=== PATIENT | male | born 2000 | race Hispanic/Latino ===

== ENCOUNTER 2021-12-12 09:26 | Emergency (ER) | payer BC | END 2021-12-12 10:16 | LOC: ERS 09:26 | DX: F12.10 Cannabis abuse, uncomplicated (principal) | CPT/HCPCS: 99283 ==

== ENCOUNTER 2023-08-06 11:02 | Emergency (ER) | payer SELFPAY | END 2023-08-06 12:05 | disposition home or self-care (01) | LOC: ERS 11:02 | DX: K92.1 Melena (principal) | CPT/HCPCS: 99282 ==